=== PATIENT | male | born 1980 | race African-American/Black ===

== ENCOUNTER 2020-10-28 09:00 | Observation (INO) | payer OTHER ==
[~2020-10-28] VITALS: Ht 167.6 cm; Wt 70.8 kg
[2020-10-28 11:11] LABS: PLATELET COUNT 225 K/uL (142-355)
[2020-10-28 11:32] LABS: POTASSIUM 3.4 mmol/L (3.6-5.2); SODIUM 138 mmol/L (136-145)
[2020-10-28 12:00] VITALS: BP 145/78; TEMP 98
[2020-10-28 12:18] LABS: PARTIAL THROMBOPLASTIN TIME 23.8 SECONDS (24.5-33.6)
[2020-10-28 12:39] VITALS: BP 145/78; TEMP 98; Ht 167.6 cm; Wt 70.8 kg
--- NOTE | 2020-10-28 13:38 | NUR ---
10/28/20 1023 PT TO ROOM 1114 ACCOMPAINED BY DAUGHTER WHICH TRANSLATES FOR HIM.PT EXPLAINED TO DAUGHTER THAT HE FEELS FINE DOES NOT WANT TO BE HERE.EXPLAINED WHY HE IS HERE FOR PRECAUTION TO R/O ANY PROBLEMS RELATED TO CHESTPAIN. DAUGHTER TRANSLATED TO HIM PT AGREED TO STAY.CC 10/28/20 1341 TO [facility] REFUSED WHEELCHA[facility] FOR TRANSPORT ACCOMPAINED BY DAUGHTER.CC 10/28/20 1343 BACK FROM [facility] ACCOMPAINED BY [facility] YUNG AND DAUGHTER.CC
--- NOTE | 2020-10-28 14:05 | NUR ---
10/28/20 1350 NEW ORDERS RECEIVED PER .PT WILL BE NPO TIL ULTRASOUND COMPLETED OF GALLBLADDER AND LIVER.CC
--- NOTE | 2020-10-28 14:07 | NUR ---
10/28/20 1207 ULTRASOUND PRESENT IN ROOM FOR PROCEDURE.CC
[2020-10-28] MEDS ORDERED: LISITAB PO (14:17)
--- NOTE | 2020-10-28 14:58 | NUR ---
PT REFUSED LOVENOX STATING HIS HEARTWAS FINE AND HE ONLY HAD ACID REFLUX AND GETS DIZZY WHEN HE DOESN'T EAT WHICH CAUSES NAUSEA. ATTEMPTED TO EXPLAIN RATIONALE FOR LOVENOX BUT HE STILL REF.
[2020-10-28 16:00] VITALS: BP 127/61; TEMP 99.1
--- NOTE | 2020-10-28 18:01 | NUR ---
10/28/20 RESP PRESENT IN ROOM FOR EKG.CC
[2020-10-28 19:59] VITALS: BP 128/57; TEMP 98.7
--- NOTE | 2020-10-28 21:59 | NUR ---
PATIENT REFUSED PO BLOOD PRESSURE MEDICATION AND SUB Q LOVENOX STATED, "IM FINE" I EXPLAINED TO THE PATIENT THE BENIFIT OF THESE BUT PATIENT REFUSED
[2020-10-28 23:58] VITALS: BP 119/71; TEMP 99.1
[2020-10-29 04:29] VITALS: BP 131/65; TEMP 98.5
--- NOTE | 2020-10-29 06:22 | NUR ---
40YOM who was admitted with CP and is on a 2 gm Na diet pland and is eating 100% of all meals and needs set up help and is 5'6" at 156.2 lbs. and BMI is at 25.2 and is overweight and is 111% of IBW, IBW = 142+/-10% (128 to 156 lbs.) and kcal needs for IBW = x 25 = 1600, x 30 = 1900, x 35 = 2300, x 40 = 2600 kcal/day, protein needs x .8 = 52 grams per day, x 1 = 65, x 1.1 = 71, x 1.2 = 79, x 1.3 = 84, x 1.4 = 90, x 1.5 = 97 grams per day and fluids for IBW x 25 to 40 = 1600 to 2600 ml/cc per day but d/t chect pain may want to limit, per MD's call. ASA, nitroglycerin, lovenix, HCTZ, Lopressor, nitrostat, Protonix and RD reviewed all medciations and all labs and labs reveal: elevated labs are WBC, BUN, glucose at 152, total bilirubin, total protein, cholesterol and LDL and those depressed are APTT and K. RD Recommendations: 1-Monitor labs 2-PT to work with the patient 3-OT to work with the patient 4-Make tulio ewill follow the diet as ordered and if not 5-Get a dietary refusal form signed 6-Chol and LDL elevated may wan to check for heart problems and if has may want to change to a cardiac high fiber diet plan 7-Continue to monitor glucose and may want to add high fiber to diet plan 8-Make sure hydrated 9-Make sure understands when, how and how much of each medication to take
--- NOTE | 2020-10-29 06:39 | NUR ---
PATIENT REFUSED NITROPASTE AND PO MEDICATIONS. SERVANDO STATES, " I FEEL FINE, MY CHEST DONT HURT."
[2020-10-29 07:26] LABS: PLATELET COUNT 198 K/uL (142-355)
[2020-10-29 07:33] LABS: POTASSIUM 3.8 mmol/L (3.6-5.2)
[2020-10-29 08:05] VITALS: BP 119/60; TEMP 98.1
[2020-10-29 12:04] VITALS: BP 137/76; TEMP 98.1
--- NOTE | 2020-10-29 16:38 | NUR ---
DC INSTRUCTIONS EXPLAINED TO PT WHO VERBALIZED UNDERSTANDING. TELE REMOVED, IV DC WITH TIP INTACT.
--- NOTE | 2020-10-29 16:45 | NUR ---
PT LEFT FLOOR WITH DAUGHTER IN NAD AT THIS TIME.
--- NOTE | 2020-10-29 16:56 | NUR ---
SPOKE TO STEPHANIE AT [facility] CALLED IN LISINOPRIL/HCTZ, METOPROLOL, PROTONIX. EDUCATION PROVIDED TO PT ON THIS MEDICATION. PT AND FAMILY VERBALIZE UNDERSTANDING.
== END 2020-10-29 16:45 | disposition home or self-care (01) ==
LOC: MED/SURG 09:00
PROVIDERS: ADMIT Family Medicine; ATTEND Family Medicine
DX: R07.89 Other chest pain (principal); R03.0 Elevated blood-pressure reading, without diagnosis of hypertension
CPT/HCPCS: 36415; 80053; 80061; 80074; 80307; 82150; 82306; 82550; 82607; 82652; 83690; 83735; 84100; 84443; 84481; 84484; 85027; 85610; 85730; 87635; 93005; 94760; 96365; 96366; 99220; G0378; G0379; J1650; U0003